=== PATIENT | female | born 1930 | race Caucasian/White ===

== ENCOUNTER 2016-09-13 10:02 | Emergency (ER) | payer MEDICARE ==
--- NOTE | 2016-09-13 11:05 | UC ---
Hand/Wrist HPI - HPI Summary HPI Summary: Fell at home in kitchen about 6 days ago, has several bumps and bruises, but L wrist and forearm has continued to be painful since then. Is unable to wear pants with a button and can't make a tight fist. Fell again 3 days later, but doesn't think she hurt her wrist at that time. No hx of orthopedic problems or surgeries. Denies any LOC, neck pain, or dizziness. - History Of Current Complaint Stated Complaint: LEFT WRIST INJURY Time Seen by Provider: 09/13/16 10:47 Hx Obtained From: Patient Hx Last Menstrual Period: n/a ?: No Onset/Duration: Sudden Onset Severity Initially: Mild Severity Currently: Mild Character Of Pain: Dull, Aching Aggravating Factor(s): Movement Alleviating: Rest Associated Signs And Symptoms: Positive: Swelling Related History: Dominant Hand Right - Allergies/Home Medications Allergies/Adverse Reactions: Allergies Allergy/AdvReac Type Severity Reaction Status Date / Time Sulfa Drugs Allergy Swelling Verified 05/28/15 09:06 seasonal Allergy Coughing Uncoded 05/28/15 09:06 PMH/Surg Hx/FS Hx/Imm Hx Endocrine History Of: Denies: Diabetes Cardiovascular History Of: Reports: Cardiac Disorders - CABG, Hypertension Denies: Pacemaker/ICD Respiratory History Of: Reports: Bronchitis Denies: Asthma - Surgical History Surgical History: Yes Surgery Procedure, Year, and Place: 7 months old--lung(HX PLEURISY). cyst from breast age 18. hernia repair. CABG - Family History Known Family History: Positive: Cardiac Disease, Hypertension - Social History Occupation: Retired Lives: With Family Alcohol Use: Rare Substance Use Type: None Smoking Status (MU): Never Smoked Tobacco - Immunization History Most Recent Tetanus Shot: 08/[address] Lawler's office Review of Systems Constitutional: Negative Skin: Bruising - L arm Eyes: Negative ENT: Negative Respiratory: Negative Cardiovascular: Negative Gastrointestinal: Negative Genitourinary: Negative Motor: Negative Neurovascular: Negative Musculoskeletal: Arthralgia Neurological: Negative Psychological: Negative All Other Systems Reviewed And Are Negative: Yes Physical Exam Triage Information Reviewed: Yes Appearance: Well-Appearing, No Pain Distress, Well-Nourished Vital Signs Reviewed: Yes Eye Exam: Normal Eyes: Positive: Conjunctiva Clear ENT Exam: Normal ENT: Positive: Normal ENT inspection, Hearing grossly normal, Pharynx normal, TMs normal Dental Exam: Normal Neck exam: Normal, Other - no cervical tenderness Neck: Positive: Supple, Nontender, No Lymphadenopathy Respiratory Exam: Normal Respiratory: Positive: Chest non-tender, Lungs clear, Normal breath sounds, No respiratory distress, No accessory muscle use Cardiovascular: Positive: RRR, Murmur:Sys:Grade _?_/ - II Musculoskeletal: Positive: ROM Limited @ - L wrist, L drafter plumbing, Other: - no bony tenderness Neurological Exam: Normal Neurological: Positive: Alert Psychological Exam: Normal Skin Exam: Other - approx 10cm x 8cm bruise on L mid FA Hand/Wrist Course/Dx - Differential Dx/Diagnosis Provider Diagnoses: Occult scaphoid fracture of L wrist Discharge - Discharge Plan Condition: Stable Disposition: HOME Patient Education Materials: SUSPECTED FRACTURE (ED), Scaphoid Fracture (ED) Referrals: Jonathan Flores MD [Medical Doctor] - 1 Week Additional Instructions: Wear the splint until you see the orthopedist. Make sure you mention that you live in [place]; there may be a different office number for you to call.
[2016-09-13 11:35] VITALS: BP 139/58
--- NOTE | 2016-09-13 11:40 | RAD ---
HISTORY: Fall on outstretched hand COMPARISONS: September 10, 2006 VIEWS: 4, Frontal, lateral, oblique, and scaphoid deviation views of the left wrist FINDINGS: BONE DENSITY: There is diffuse osteopenia. BONES: There is a nondisplaced fracture of the distal radial metaphysis. 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 ALIGNMENT: There is no dislocation. SOFT TISSUES: Unremarkable. OTHER FINDINGS: None. IMPRESSION: 1. NONDISPLACED FRACTURE OF THE DISTAL RADIAL METAPHYSIS. 2. OSTEOARTHRITIS. 3. OSTEOPENIA.
== END 2016-09-13 11:40 | disposition home or self-care (01) ==
LOC: UCCORT 10:02
DX: S52.592A Other fractures of lower end of left radius, initial encounter for closed fracture (principal); W19.XXXA Unspecified fall, initial encounter; Y92.000 Kitchen of unspecified non-institutional (private) residence as the place of occurrence of the external cause; M18.9 Osteoarthritis of first carpometacarpal joint, unspecified; M85.88 Other specified disorders of bone density and structure, other site; I10 Essential (primary) hypertension; I51.9 Heart disease, unspecified; Z95.1 Presence of aortocoronary bypass graft; Z88.2 Allergy status to sulfonamides
CPT/HCPCS: 99212; G0463

== ENCOUNTER 2017-04-23 10:40 | Emergency (ER) | payer MEDICARE ==
[2017-04-23 11:05] VITALS: BP 140/74
--- NOTE | 2017-04-23 11:55 | UC ---
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 States it was painful earlier this morning but not currently. " She is here with her dtr who is visiting. rash was painful this morning, but not now. no blisters. She admist to gardening a lot and specifically with a short shirt 2 days ago that she kept pulling down in the back. no fevers. feels well o/w. - History of Current Complaint Chief Complaint: UCSkin Time Seen by Provider: 04/23/17 11:53 Stated Complaint: RASH Hx Last Menstrual Period: n/a - Allergy/Home Medications Allergies/Adverse Reactions: Allergies Allergy/AdvReac Type Severity Reaction Status Date / Time Clavulanic Acid Allergy Nausea And Verified 04/23/17 11:01 [From Augmentin] Vomiting Sulfa Drugs Allergy Swelling Verified 04/23/17 11:01 Amoxicillin [From Augmentin] AdvReac Diarrhea Verified 04/23/17 11:01 seasonal Allergy Coughing Uncoded 04/23/17 11:01 Review of Systems Constitutional: Negative Skin: Rash Eyes: Negative ENT: Negative Respiratory: Negative Cardiovascular: Negative Gastrointestinal: Negative Genitourinary: Negative Motor: Negative Neurovascular: Negative Musculoskeletal: Negative Neurological: Negative Psychological: Negative All Other Systems Reviewed And Are Negative: Yes PMH/Surg Hx/FS Hx/Imm Hx Previously Healthy: Yes Endocrine History: Dyslipidemia Cardiovascular History: Hypertension Psychological History: Anxiety, Depression - Surgical History Surgical History: Yes Surgery Procedure, Year, and Place: 9 months old--lung(HX PLEURISY). cyst from breast age 18. hernia repair. CABG 2013 - Family History Known Family History: Positive: Cardiac Disease, Hypertension - Social History Alcohol Use: Rare Substance Use Type: None Smoking Status (MU): Never Smoked Tobacco - Immunization History Most Recent Tetanus Shot: 08/[address] Lawler's office Physical Exam Triage Information Reviewed: Yes Appearance: Well-Appearing - looks younger than stated age, very pleasant Vital Signs: Initial Vital Signs Temp 98.7 F 04/23/17 10:56 Pulse 74 04/23/17 10:56 Resp 16 04/23/17 10:56 BP 140/74 04/23/17 10:56 Pulse Ox 100 04/23/17 10:56 Vital Signs Reviewed: Yes ENT Exam: Normal Neck exam: Normal Respiratory Exam: Normal Respiratory: Positive: Lungs clear, Normal breath sounds, No respiratory distress Cardiovascular Exam: Normal Cardiovascular: Positive: RRR, No Murmur Musculoskeletal Exam: Normal Neurological Exam: Normal Psychological Exam: Normal Skin: Positive: rashes - low back with comletely symmetric distribution of a rash consistent with exposed low back by low shirt. warm to touch, no blisters, no discharge. no streaks. Course/Dx - Course Course Of Treatment: sunburn rash 2 days ago on low back from when she did a lot of gardening, bending over with a short shirt that she kept pulling down. - Differential Diagnoses - Skin Complaint Differential Diagnoses: Cellulitis, Contact Dermatitis, Other - sunburn - Diagnoses Provider Diagnoses: sunburn Discharge - Discharge Plan Condition: Stable Disposition: HOME Patient Education Materials: Sunburn (ED) Referrals: Alejo Lawler MD [Primary Care Provider] - 4 Days Additional Instructions: keep your regulaly scheduled appt this week with your PCP -you can use aloe or a soothing lotion on your skin. there is no blistering and not suspicious of any infection at this time.
== END 2017-04-23 12:10 | disposition home or self-care (01) ==
LOC: UCCORT 10:40
DX: L55.9 Sunburn, unspecified (principal); E78.5 Hyperlipidemia, unspecified; I10 Essential (primary) hypertension; F41.9 Anxiety disorder, unspecified; F32.9 Major depressive disorder, single episode, unspecified; Z95.1 Presence of aortocoronary bypass graft; Z88.1 Allergy status to other antibiotic agents; Z88.2 Allergy status to sulfonamides
CPT/HCPCS: 99211; G0463

== ENCOUNTER 2017-07-07 11:13 | Emergency (ER) | payer MEDICARE ==
[2017-07-07 11:29] VITALS: BP 160/88
--- NOTE | 2017-07-07 11:49 | UC ---
Upper Extremity HPI - HPI Summary HPI Summary: right arm pain and bruising x 2 weeks s/p fall on her right arm 2 weeks ago , - History of Current Complaint Chief Complaint: UCUpperExtremity Stated Complaint: LEFT ARM INJ Time Seen by Provider: 07/07/17 11:34 Hx Obtained From: Patient Hx Last Menstrual Period: n/a Onset/Duration: Sudden Onset, Lasting Weeks - 2, Still Present Severity Initially: Moderate Severity Currently: Moderate Location Of Pain: Is Discrete @ - right arm Character: Aching Aggravating Factor(s): Movement Alleviating Factor(s): Nothing Associated Signs And Symptoms: Positive: Swelling, Bruising. Negative: Redness , Weakness, Numbness/Tingling - Allergies/Home Medications Allergies/Adverse Reactions: Allergies Allergy/AdvReac Type Severity Reaction Status Date / Time Clavulanic Acid Allergy Nausea And Verified 07/07/17 11:29 [From Augmentin] Vomiting Sulfa Drugs Allergy Swelling Verified 07/07/17 11:29 Amoxicillin [From Augmentin] AdvReac Diarrhea Verified 07/07/17 11:29 seasonal Allergy Coughing Uncoded 07/07/17 11:29 Home Medications: Home Medications Fluticasone NASAL * [Flonase *] 2 spray BOTH NARES DAILY 07/07/17 [History Confirmed 07/07/17] Loratadine [Claritin 10 MG CAP] 10 mg PO DAILY 07/07/17 [History Confirmed 07/07] PMH/Surg Hx/FS Hx/Imm Hx Cardiovascular History: Cardiac Disease, Hypertension - Surgical History Surgical History: Yes Surgery Procedure, Year, and Place: 9 months old--lung(HX PLEURISY). cyst from breast age 18. hernia repair. CABG 2013 - Family History Known Family History: Positive: Cardiac Disease, Hypertension - Social History Alcohol Use: Rare Substance Use Type: None Smoking Status (MU): Never Smoked Tobacco - Immunization History Most Recent Tetanus Shot: 08/[address] Lawler's office Review of Systems Constitutional: Negative Skin: Negative Eyes: Negative ENT: Negative Respiratory: Negative Is Patient Immunocompromised?: No All Other Systems Reviewed And Are Negative: Yes Physical Exam Triage Information Reviewed: Yes Appearance: Well-Appearing, No Pain Distress, Well-Nourished Vital Signs: Initial Vital Signs Temp 98.1 F 07/07/17 11:23 Pulse 88 07/07/17 11:23 Resp 16 11/02/17 11:23 BP 160/88 07/07/17 11:23 Pulse Ox 97 07/07/17 11:23 Vital Signs Reviewed: Yes Eyes: Positive: Conjunctiva Clear ENT: Positive: Normal ENT inspection, Hearing grossly normal, Pharynx normal Neck: Positive: Supple, Nontender, No Lymphadenopathy Respiratory: Positive: Chest non-tender, Lungs clear, Normal breath sounds Cardiovascular: Positive: RRR, No Murmur, Pulses Normal Musculoskeletal: Positive: Other: - right arm : + 5 cm hematoma right forearm , no erythema, mild tenderness, + ecchymosis of the righr elbow foream, no tenderness, good ROM , normal strength Upper Extremity Course/Dx - Differential Dx/Diagnosis Provider Diagnoses: contusion right arm. heamtoma right arm Discharge - Discharge Plan Condition: Stable Disposition: HOME Patient Education Materials: Contusion in Adults (ED), Hematoma (ED) Referrals: Alejo Lawler MD [Primary Care Provider] - 7 Days
== END 2017-07-07 12:00 | disposition home or self-care (01) ==
LOC: UCCORT 11:13
DX: S40.021A Contusion of right upper arm, initial encounter (principal); J30.2 Other seasonal allergic rhinitis; I10 Essential (primary) hypertension; W19.XXXA Unspecified fall, initial encounter; Y92.9 Unspecified place or not applicable; Z95.1 Presence of aortocoronary bypass graft; Z88.1 Allergy status to other antibiotic agents; Z88.2 Allergy status to sulfonamides
CPT/HCPCS: 99211; G0463